=== PATIENT | male | born 1975 | race Caucasian/White ===

== ENCOUNTER 2019-03-21 05:25 | Emergency (ER) | payer BC ==
[2019-03-21] MEDS ORDERED: Sodium Chloride 0.9% 10 ML Syringe FLUSH PRN (05:39)
[2019-03-21] MEDS ORDERED: Sodium Chloride 0.9% 1,000 ML IV ONE (05:39)
[2019-03-21] MEDS ORDERED: Sodium Chloride 0.9% 2.5 ML Syringe FLUSH PRN (05:39)
[2019-03-21] MEDS ORDERED: Morphine 2 MG/ML Syringe IVPUSH ONE (05:39)
[2019-03-21] MEDS ORDERED: Ketorolac 30 MG/ML SDV IVPUSH ONE (05:39)
[2019-03-21] MEDS ORDERED: Ondansetron 4 MG/2 ML SDV IVPUSH ONE (05:39)
--- NOTE | 2019-03-21 05:42 | EDM.PDOC ---
ED HPI GENERAL MEDICAL PROBLEM - General Chief Complaint: Upper Extremity Injury/Pain Stated Complaint: PT FELL DOWN STAIRS- DIZZY, DISLOCATED SHOULDER Time Seen by Provider: 03/21/19 05:35 - History of Present Illness INITIAL COMMENTS - FREE TEXT/NARRATIVE: HISTORY AND PHYSICAL: History of present illness: The patient is a 43-year-old male who presents after falling down approximately 10-12 stairs after his slipper got caught as he was going down to shut off some lights at his home. He says he did not hit his head pass out or black out and has no head neck or back pain but has isolated pain in his left shoulder. He says he is concerned that it might be dislocated and he has a history of dislocating it when he was in high school. Since that time he has not had any orthopedic issues with his shoulder. He has no chest pain abdominal pain nausea or vomiting and no other extremity complaints. He says that he has no numbness or tingling in his distal arm and has no clavicle pain elbow forearm wrist or hand pain on the left. The patient says he was having his usual evening with no systemic complaints and he did admit that he had 4 or 5 beers earlier this evening at approximately 8 or 9 PM. Prior to the fall he was not dizzy or lightheaded and had no systemic issues he said his slipper has gotten caught on this nail in the past but he has not fallen. He is not sure if he fell with an outstretched arm or he tried to brace his fall. Review of systems: As per history of present illness and below otherwise all systems reviewed and negative. Past medical history: As per history of present illness and as reviewed below otherwise noncontributory. Surgical history: As per history of present illness and as reviewed below otherwise noncontributory. Social history: No reported history of drug or alcohol abuse. Family history: As per history of present illness and as reviewed below otherwise noncontributory. Physical exam: General: Well-developed well-nourished man who is nontoxic and vital signs are noted by me. The patient is speaking clearly and easily without slurred speech and there is no smell of alcohol on his breath HEENT: Atraumatic, there is no evidence of any scalp defects or deformities normocephalic, pupils reactive, EOMs are intact, negative for conjunctival pallor or scleral icterus, mucous membranes moist, throat clear, neck supple, nontender, trachea midline. There is no evidence of any facial swelling defects or deformities and no palpable tenderness on exam and there is no nasal blood, teeth and bite are intact, there are no midline step-offs or defects of the cervical spine Lungs: Clear to auscultation, breath sounds equal bilaterally, chest nontender. Heart: S1S2, regular rate and rhythm no overt murmurs Abdomen: Soft, nondistended, nontender. NABS Negative for costovertebral tenderness. Pelvis: Stable nontender. Genitourinary: Deferred. Rectal: Deferred. Extremities: Atraumatic, full range of motion of all extremities with the exception of the left shoulder where there is no palpable defect or deformity in the clavicle humerus elbow forearm wrist or hand but there is an obvious step -off of the acromioclavicular joint. Pulses are intact and neurovascular and button sewer in the hand is intact. The patient can flex and extend at the elbow as well as at the wrist and hand. Neurovascular unremarkable. Neuro: Awake, alert, oriented. Cranial nerves II through XII unremarkable. Cerebellum unremarkable. Motor and sensory unremarkable throughout. Exam nonfocal. Back: There are no midline step-offs in his defects of the thoracic or lumbar spine and no visible evidence of any soft tissue injuries Diagnostics: CBC CMP x-ray of left shoulder and one view chest x-ray As reduction left shoulder x-ray Therapeutics: IV fluids morphine Toradol Zofran Dilaudid shoulder immobilizer Procedure note: After initial medications of Toradol and morphine given a attempted to reduce the shoulder using the Vila technique and although the muscle was securely relating it would not release the spasm. Dilaudid was then given and the shoulder was reduced easily with scapular manipulation. There were no complications and the patient tolerated the procedure well. A shoulder immobilizer was placed and a postreduction x-ray was ordered and will be checked by me Patient is awake and alert and interactive and is aware of care plan for home. Impression: Fall with left shoulder injury/left shoulder dislocation reduced Definitive disposition and diagnosis as appropriate pending reevaluation and review of above. left shoulder Pain Score (Numeric/FACES): 10 - Related Data Allergies Allergy/AdvReac Type Severity Reaction Status Date / Time No Known Allergies Allergy Verified 03/21/19 05:38 Home Meds: Home Meds . [No Known Home Meds] 03/21/19 [History] Social & Family History - Tobacco Use Smoking Status *Q: Current Every Day Smoker Years of Tobacco use: 15 Packs/Tins Daily: 1 - Caffeine Use Caffeine Use: Reports: Coffee Caffeine Use Comment: daily - Recreational Drug Use Recreational Drug Use: No Review of Systems - Review of Systems Review Of Systems: ROS reveals no pertinent complaints other than HPI. ED EXAM, GENERAL - Physical Exam Exam: See Below (see dictation) Course - Vital Signs Last Recorded V/S: Last Vital Signs Temp 35.7 C 03/21/19 05:25 Pulse 76 03/21/19 05:25 Resp 18 03/21/19 05:25 BP 118/79 03/21/19 05:25 Pulse Ox 95 03/21/19 05:25 - Orders/Labs/Meds Orders: Active Orders 24 hr Category Date Time Status Shoulder 1V Lt [CR] Stat Exams 03/21/19 06:38 Taken Sodium Chloride 0.9% [Saline Flush] Med 03/21/19 05:39 Active 10 ml FLUSH ASDIRECTED PRN Sodium Chloride 0.9% [Saline Flush] Med 03/21/19 05:39 Active 2.5 ml FLUSH ASDIRECTED PRN DME for Discharge [COMM] Stat Oth 03/21/19 06:38 Ordered Saline Lock Insert [OM.PC] Stat Oth 03/21/19 05:39 Ordered Medication Orders Sodium Chloride (Saline Flush) 10 ml FLUSH ASDIRECTED PRN PRN Reason: Keep Vein Open Sodium Chloride (Saline Flush) 2.5 ml FLUSH ASDIRECTED PRN PRN Reason: Keep Vein Open Labs: Laboratory Tests 03/21/19 03/21/19 Range/Units 05:45 05:45 WBC 14.19 H (4.0-11.0) K/uL RBC 4.52 (4.50-5.90) M/uL Hgb 14.6 (13.0-17.0) g/dL Hct 42.7 (38.0-50.0) % MCV 94.5 (80.0-98.0) fL MCH 32.3 H (27.0-32.0) pg MCHC 34.2 (31.0-37.0) g/dL RDW Std Deviation 49.0 (28.0-62.0) fl RDW Coeff of Mohan 14 (11.0-15.0) % Plt Count 280 (150-400) K/uL MPV 9.50 (7.40-12.00) fL Neut % (Auto) 90.3 H (48.0-80.0) % Lymph % (Auto) 6.0 L (16.0-40.0) % [place] % (Auto) 3.5 (0.0-15.0) % Eos % (Auto) 0.1 (0.0-7.0) % Baso % (Auto) 0.1 (0.0-1.5) % Neut # (Auto) 12.8 H (1.4-5.7) K/uL Lymph # (Auto) 0.9 (0.6-2.4) K/uL [place] # (Auto) 0.5 (0.0-0.8) K/uL Eos # (Auto) 0.0 (0.0-0.7) K/uL Baso # (Auto) 0.0 (0.0-0.1) K/uL Nucleated RBC % 0.0 /100WBC Nucleated RBCs # 0 K/uL Sodium 139 (136-148) mmol/L Potassium 3.9 (3.5-5.1) mmol/L Chloride 103 (98-107) mmol/L Carbon Dioxide 21.6 (21.0-32.0) mmol/L BUN 17 (7.0-18.0) mg/dL Creatinine 0.9 (0.8-1.3) mg/dL Est Cr Clr Drug Dosing TNP Estimated GFR (MDRD) > 60.0 ml/min Glucose 145 H (74-106) mg/dL Calcium 8.2 L (8.5-10.1) mg/dL Total Bilirubin 0.2 (0.2-1.0) mg/dL AST 34 (15-37) IU/L ALT 60 (14-63) IU/L Alkaline Phosphatase 61 (46-116) U/L Total Protein 7.1 (6.4-8.2) g/dL Albumin 3.9 (3.4-5.0) g/dL Globulin 3.2 (2.6-4.0) g/dL Albumin/Globulin Ratio 1.2 (0.9-1.6) Meds: Medications Generic Name Dose Route Start Last Admin Trade Name Freq PRN Reason Stop Dose Admin Sodium Chloride 10 ml 03/21/19 05:39 Saline Flush FLUSH ASDIRECTED PRN Keep Vein Open Sodium Chloride 2.5 ml 03/21/19 05:39 Saline Flush FLUSH ASDIRECTED PRN Keep Vein Open Discontinued Medications Generic Name Dose Route Start Last Admin Trade Name Freq PRN Reason Stop Dose Admin Hydromorphone HCl 1 mg 03/21/19 06:31 03/21/19 06:42 Dilaudid IVPUSH 03/21/19 06:32 1 mg ONETIME ONE Administration Sodium Chloride 1,000 mls @ 999 mls/hr 03/21/19 05:39 03/21/19 05:47 Normal Saline IV 03/21/19 06:39 999 mls/hr STAT ONE Administration Ketorolac Tromethamine 30 mg 03/21/19 05:39 03/21/19 05:50 Toradol IVPUSH 03/21/19 05:40 30 mg ONETIME ONE Administration Morphine Sulfate 2 mg 03/21/19 05:39 03/21/19 05:52 Morphine IVPUSH 03/21/19 05:40 2 mg ONETIME ONE Administration Ondansetron HCl 4 mg 03/21/19 05:39 03/21/19 05:47 Zofran IVPUSH 03/21/19 05:40 4 mg ONETIME ONE Administration Departure - Departure Time of Disposition: 07:05 Disposition: Home, Self-Care 01 Condition: Good Clinical Impression: Dislocation of shoulder, left, closed Qualifiers: Encounter type: initial encounter Qualified Code(s): S43.005A - Unspecified dislocation of left shoulder joint, initial encounter - Discharge Information Referrals: PCP,None [Primary Care Provider] - Forms: ED Department Discharge Additional Instructions: The following information is given to patients seen in the emergency department who are being discharged to home. This information is to outline your options for follow-up care. We provide all patients seen in our emergency department with a follow-up referral. The need for follow-up, as well as the timing and circumstances, are variable depending upon the specifics of your emergency department visit. If you don't have a primary care physician on staff, we will provide you with a referral. We always advise you to contact your personal physician following an emergency department visit to inform them of the circumstance of the visit and for follow-up with them and/or the need for any referrals to a consulting specialist. The emergency department will also refer you to a specialist when appropriate. This referral assures that you have the opportunity for followup care with a specialist. All of these measure are taken in an effort to provide you with optimal care, which includes your followup. Under all circumstances we always encourage you to contact your private physician who remains a resource for coordinating your care. When calling for followup care, please make the office aware that this follow-up is from your recent emergency room visit. If for any reason you are refused follow-up, please contact the [facility] emergency department at and ask to speak to the emergency department charge nurse. [facility]--Orthopedic clinic [address] [address] Use ice to areas of swelling and pain and use [id number] Tylenol/ ibuprofen for pain management. You must wear the shoulder immobilizer at all times until you're followed up in the clinic. Please do not remove and move the shoulder as it a re-dislocate. Please call the clinic this morning and schedule a follow-up appointment with our orthopedics department. Return to ER as needed and as discussed - My Orders Last 24 Hours: My Active Orders 03/21/19 05:39 Sodium Chloride 0.9% [Saline Flush] 10 ml FLUSH ASDIRECTED PRN Sodium Chloride 0.9% [Saline Flush] 2.5 ml FLUSH ASDIRECTED PRN Saline Lock Insert [OM.PC] Stat 03/21/19 06:38 Shoulder 1V Lt [CR] Stat DME for Discharge [COMM] Stat - Assessment/Plan Last 24 Hours: My Active Orders 03/21/19 05:39 Sodium Chloride 0.9% [Saline Flush] 10 ml FLUSH ASDIRECTED PRN Sodium Chloride 0.9% [Saline Flush] 2.5 ml FLUSH ASDIRECTED PRN Saline Lock Insert [OM.PC] Stat 03/21/19 06:38 Shoulder 1V Lt [CR] Stat DME for Discharge [COMM] Stat
[2019-03-21 06:27] LABS: CHLORIDE,CL 103 mmol/L (98-107); SODIUM,NA 139 mmol/L (136-148)
[2019-03-21] MEDS ORDERED: HYDROmorphone 1 MG/ML Syringe IVPUSH ONE (06:31)
--- NOTE | 2019-03-21 06:44 | CR ---
Indication: Dizziness Technique: Chest 2 views Comparison: None Findings: Cardiovascular and mediastinum: Heart size and vasculature are normal in caliber and appearance. Lungs and pleural spaces: Lungs are clear. No sign of infiltrate or mass. No sign of pleural effusion. No pneumothorax. Bones and soft tissues: No significant findings. Impression: No acute or significant findings. Dictated by Ish Romano MD @ Mar 21 2019 6:42AM Signed by Dr. Ish Romano @ Mar 21 2019 6:43AM
--- NOTE | 2019-03-21 06:44 | CR ---
Indication: Dislocation Technique: Left shoulder 2 views Comparison: None Findings/Impression: Bones: There is an anterior dislocation of the glenohumeral joint. No fracture evident. Soft tissues: Unremarkable. Dictated by Ish Romano MD @ Mar 21 2019 6:33AM Signed by Dr. Ish Romano @ Mar 21 2019 6:42AM
--- NOTE | 2019-03-21 07:30 | CR ---
Indication: Dislocation post reduction Technique: Left shoulder 1 views Comparison: March 21, 2019 Findings/Impression: Dislocation has been successfully reduced. Alignment is normal. No fracture or other new abnormality evident. Dictated by Ish Romano MD @ Mar 21 2019 7:27AM Signed by Dr. Ish Romano @ Mar 21 2019 7:28AM
== END 2019-03-21 07:25 | disposition home or self-care (01) ==
LOC: MW.ED 05:25
DX: S43.005A Unspecified dislocation of left shoulder joint, initial encounter (principal); F17.210 Nicotine dependence, cigarettes, uncomplicated; W10.9XXA Fall (on) (from) unspecified stairs and steps, initial encounter
CPT/HCPCS: 23650; 36415; 71045; 73020; 73030; 80053; 85025; 96361; 96374; 96375; 99283; J1170; J1885; J2270; J2405; J7040

== ENCOUNTER 2021-01-12 07:04 | Day surgery (SDC) | payer BC, OTHER ==
[~2021-01-12 07:04] MED LIST: Lactated Ringers 1,000 ML IV SCH
[2021-01-12] MEDS ORDERED: Midazolam 1 MG/ML 2 ML SDV ONE (07:07)
[2021-01-12] MEDS ORDERED: Propofol 200 MG/20 ML SDV ONE ×2 (07:07→09:11)
[2021-01-12] MEDS ORDERED: fentaNYL 100 MCG/2 ML SDV ONE (07:08)
--- NOTE | 2021-01-12 08:12 | PCM.PREANE ---
Preanesthetic Assessment - Anesthesia/Transfusion/Family Hx Anesthesia History: No Prior Anesthesia Other Type of Anesthesia Reaction Comment: "I was told I wake up swinging" Family History of Anesthesia Reaction: No Transfusion History: No Prior Transfusion(s) - Review of Systems General: No Symptoms Pulmonary: No Symptoms Cardiovascular: No Symptoms Gastrointestinal: No Symptoms Neurological: No Symptoms Other: Reports: None - Physical Assessment NPO Status Date: 01/12/21 NPO Status Time: 00:05 Vital Signs: Last Vital Signs Temp 97.9 F 01/12/21 07:50 Pulse 58 L 01/12/21 07:50 Resp 16 01/12/21 07:50 BP 139/84 01/12/21 07:50 Pulse Ox 94 L 01/12/21 07:50 Height: 6 ft 2 in Weight: 242 lb ASA Class: 2 Mental Status: Alert & Oriented x3 Airway Class: Mallampati = 2 Dentition: Reports: Normal Dentition ROM/Head Extension: Full Lungs: Clear to Auscultation, Normal Respiratory Effort Cardiovascular: Regular Rate, Regular Rhythm - Allergies Allergies/Adverse Reactions: Allergies Allergy/AdvReac Type Severity Reaction Status Date / Time No Known Allergies Allergy Verified 01/12/21 07:48 - Anesthesia Plan Pre-Op Medication Ordered: None - Acknowledgements Anesthesia Type Planned: General Anesthesia Pt an Appropriate Candidate for the Planned Anesthesia: Yes Alternatives and Risks of Anesthesia Discussed w Pt/Guardian: Yes Pt/Guardian Understands and Agrees with Anesthesia Plan: Yes Additional Comments: npo elevated bp no meds no cv problems etoh 8 beers a week tob 1 ppd par no questions PreAnesthesia Questionnaire HEENT History: Reports: None Cardiovascular History: Reports: None Respiratory History: Reports: None Gastrointestinal History: Reports: None Genitourinary History: Reports: None Musculoskeletal History: Reports: Other (See Below) Other Musculoskeletal History: hx dislocated shoulder Neurological History: Reports: None Psychiatric History: Reports: None Endocrine/Metabolic History: Reports: Obesity/BMI 30+ Hematologic History: Reports: None Immunologic History: Reports: None Oncologic (Cancer) History: Reports: None Dermatologic History: Reports: None - Past Surgical History Head Surgeries/Procedures: Reports: None HEENT Surgical History: Reports: None Cardiovascular Surgical History: Reports: None Respiratory Surgical History: Reports: None GI Surgical History: Reports: None Male Surgical History: Reports: None Endocrine Surgical History: Reports: None Neurological Surgical History: Reports: Lumbar Spine Other Neurological Surgeries/Procedures: discectomy x 2 Musculoskeletal Surgical History: Reports: None Oncologic Surgical History: Reports: None Dermatological Surgical History: Reports: None - SUBSTANCE USE Tobacco Use Status *Q: Current Every Day Tobacco User Tobacco Use Within Last Twelve Months: Cigarettes Days Per Week of Alcohol Use: 3 Number of Drinks Per Day: 2 Total Drinks Per Week: 6 - HOME MEDS Home Medications: Home Meds . [No Known Home Meds] 03/21/19 [History] - CURRENT (IN HOUSE) MEDS Current Meds: Current Medications Lactated Ringer's (Ringers, Lactated) 1,000 mls @ 125 mls/hr IV ASDIRECTED DIMITRIOS Last Admin: 01/12/21 07:48 Dose: 125 mls/hr Documented by: Discontinued Medications Fentanyl (Fentanyl 100 Mcg/2 Ml Sdv) Confirm Administered Dose 100 mcg .ROUTE .STK-MED ONE Stop: 01/12/21 07:09 Midazolam HCl (Midazolam 1 Mg/Ml 2 Ml Sdv) Confirm Administered Dose 2 mg .ROUTE .STK-MED ONE Stop: 01/12/21 07:08 Propofol (Propofol 200 Mg/20 Ml Sdv) Confirm Administered Dose 400 mg .ROUTE .STK-MED ONE Stop: 01/12/21 07:08
[2021-01-12] MEDS ORDERED: Lidocaine 2% 5 ML SDV ONE (08:38)
--- NOTE | 2021-01-12 09:37 | PCM.OPNOTE ---
- General Post-Op/Procedure Note Date of Surgery/Procedure: 01/12/21 Operative Procedure(s): egd w bx. colonoscopy w bx Findings: see [id number] Pre Op Diagnosis: colitis hx. positive fam hx colon cancer Post-Op Diagnosis: Same Anesthesia Technique: Moderate Sedation Primary Surgeon: Angus Stratton Pathology: 2 mm sessile polyps X 2 at 20cm when withdrawal Complications: None Condition: Good
--- NOTE | 2021-01-12 09:45 | PCM.POSTAN ---
POST ANESTHESIA ASSESSMENT - MENTAL STATUS Mental Status: Alert, Oriented - VITAL SIGNS Vital Signs: Last Vital Signs Temp 97.5 F 01/12/21 09:22 Pulse 58 L 01/12/21 09:39 Resp 12 01/12/21 09:39 BP 125/89 01/12/21 09:39 Pulse Ox 98 01/12/21 09:39 - RESPIRATORY Respiratory Status: Respiratory Rate WNL, Airway Patent, O2 Saturation Stable - CARDIOVASCULAR CV Status: Pulse Rate WNL, Blood Pressure Stable - GASTROINTESTINAL GI Status: No Symptoms - POST OP HYDRATION Hydration Status: Adequate & Stable
--- NOTE | 2021-01-12 09:52 | PCM48HPAN ---
Post Anesthesia Note - EVALUATION WITHIN 48HRS OF ANESTHETIC Vital Signs in Normal Range: Yes Patient Participated in Evaluation: Yes Respiratory Function Stable: Yes Airway Patent: Yes Cardiovascular Function Stable: Yes Hydration Status Stable: Yes Pain Control Satisfactory: Yes Nausea and Vomiting Control Satisfactory: Yes Mental Status Recovered: Yes Vital Signs: Last Vital Signs Temp 97.5 F 01/12/21 09:22 Pulse 58 L 01/12/21 09:39 Resp 12 01/12/21 09:39 BP 125/89 01/12/21 09:39 Pulse Ox 98 01/12/21 09:39 - COMMENTS/OBSERVATIONS Free Text/Narrative:: no problems
--- NOTE | 2021-01-12 19:58 | OR ---
SURGEON: Angus Stratton MD DATE OF PROCEDURE: 01/12/2021 PREOPERATIVE DIAGNOSES: Positive family history and colitis history and also gastroesophageal reflux disease. PROCEDURE PERFORMED: 1. Esophagogastroduodenoscopy with biopsy. 2. Colonoscopy with biopsy. EGD: The patient was taken to the endoscopy room, and with the RISK ANALYST, Diprivan was administered. A well-lubricated EGD scope was gently inserted through the oropharynx, down the esophagus, passing through the gastroesophageal junction, into the stomach. The mucosa was examined upon the passage. Any etiology will be noted. Once in the stomach, we continued to advance to the distal antrum, passed through the pylorus into the second portion of the duodenum. Again, the mucosa was examined for any abnormality and etiology. The scope was then retrieved back to the stomach and then retroflexed to look at the fundus of the stomach. If a biopsy was indicated, we will biopsy the antrum, body, and gastroesophageal junction. The air will be sucked out while the scope is retrieved to reduce the patient's discomfort. The patient tolerated the procedure well. There were no intraoperative complications. Dr. Stratton was present through the whole procedure. Prior to surgery, a time-out had been called, the patient identified, procedure identified and antibiotic administered. The patient was taken to the endoscopy room. A time out was called, patient identified, and procedure identified. Diprivan was then administrated. Patient went from awake to sleep, hearing doctor talking or door closing is normal. Perineum inspection and digital examination were then performed. A well- lubricated colonoscope was gently inserted through the rectum, advanced past the rectosigmoid junction, the descending colon, splenic flexure, transverse colon, hepatic flexure, ascending colon, arrived to the cecum. Cecum was identified as dictated in the finding. Then the scope was carefully withdrawn while attention was paid to the mucosal surface for any abnormality. Air will be sucked out during the scope withdrawal. At the rectum, retroflexed to examine any rectal diseases, fistula or hemorrhoids. During mucosal examination, abnormality or polyp was noted; picture taken and biopsy performed. Patient tolerated procedure well. There were no intraoperative complications, and Dr. Stratton was present throughout the whole procedure. FINDINGS: EGD findings: 1. The patient is easily sedated with RISK ANALYST and Diprivan, the patient is soundly snoring. 2. Oropharynx and proximal esophagus are free of stricture, inflammation and varicosity. Distal esophagus as in GE junction at 40 shows salmond color change consistent with erosive esophagitis. There was no bleeding observed but some area clearly with the appearance of ulcer. Rugae looks normal in appearance. Antrum looks fine. Duodenum looks fine. Retroflexed look at the fundus of stomach, there is no hiatal hernia. Biopsy done of antrum, body, and GE junction at 40, sucked out gas while scope pulling out. During the whole study, there was no blood observed, no bile, no food particle. The patient will start omeprazole 40 mg p.o. daily for one month with 3 refills and would benefit from repeat EGD, to assess the situation in 6 months from now. Colonoscopy findings: 1. The patient is easily sedated with RISK ANALYST and Diprivan, the patient is soundly snoring. 2. Bowel prep is average to little bit below average. No stool ball or semi- formed stool but opaque yellow liquid stool is all over the place, required a lot of irrigation and lots of bubbles required use of simethicone. Colon is rather straightforward. Cecum indicated by ileocecal fold, one-to-one indentation, appendiceal orifice and ScopeGuide is pointing south. Mucosa examined upon scope pulling out with constant irrigation. The patient does not have diverticulosis, mass, growth, inflammation, stricture, ulceration, AV malformation, bleeding, none of those. The patient has 2 very very tiny, less than 2 to 3 mm polyp at distance 20 when scope pulling out, was removed with cold biopsy forceps. The patient does not have internal hemorrhoids, does not have external hemorrhoids. The patient would benefit from repeat colonoscopy in 3 years from today because of family history or if clinically indicated otherwise or if the pathology of the polyp indicated otherwise. LUIS E / MORAIMA /[id number] FEDE
== END 2021-01-12 10:05 | disposition home or self-care (01) ==
LOC: MW.SDS 07:04
PROVIDERS: ATTEND Surgery
DX: D12.8 Benign neoplasm of rectum (principal); K20.90 Esophagitis, unspecified without bleeding; K21.9 Gastro-esophageal reflux disease without esophagitis; I10 Essential (primary) hypertension; F17.210 Nicotine dependence, cigarettes, uncomplicated; E66.9 Obesity, unspecified; Z87.19 Personal history of other diseases of the digestive system; Z80.0 Family history of malignant neoplasm of digestive organs; Z68.31 Body mass index [BMI] 31.0-31.9, adult
CPT/HCPCS: 43239; 45380; J2250; J2704; J3010; J7120; 00813